=== PATIENT | female | born 1965 | race Caucasian/White ===

== ENCOUNTER → 2016-06-18 | Outpatient (CLI) | payer OTHER ==
[2015-07-10 10:15] VITALS: BP 99/44
[~2016-06-18] MED LIST: CEPH500T PO; CYCL10TA2 PO; DOCU50CA9 PO; GABA600T2 PO; HYDR-2762 PO; HYDR-965 PO; IBUP-1060 PO; MORP15TA PO; MORP15TA3 PO; OXYC1TAB8 PO
--- NOTE | 2016-06-18 09:38 | RAD ---
Two-view lumbar spine series Indications: Lumbar fusion in July 2015. Worsening pain in back and down legs for one month. Comparison: September 24, 2015. Findings: Again seen are bilateral transpedicular screws at L3 and L4 and L5 connected by 2 vertical stabilizer bars. Again seen is interbody disc space fusion device at L3-4. Increased lucency is seen around the L5 transpedicular screws especially the left screw in the AP projection. Partial laminectomy is seen at L4. Alignment is stable. No compression fracture or discitis or osteolytic process is seen. Transverse processes are intact. There is moderate degenerative endplate spurring and mild disc space narrowing throughout the lumbar spine. This is unchanged. IMPRESSION: Lumbar fusion from L3 to L5. Stable alignment. No compression fracture or discitis is seen. Increased lucency around the transpedicular screws at L5. Loosening and/or infection is possible.
== END | disposition home or self-care (01) ==
LOC: RAD 08:28
PROVIDERS: ATTEND Neurological Surgery
DX: M43.26 Fusion of spine, lumbar region (principal)
CPT/HCPCS: 72100

== ENCOUNTER → 2017-10-23 | Outpatient (CLI) | payer OTHER ==
[2015-07-10 10:15] VITALS: BP 99/44
[~2017-10-23] MED LIST changes: +GADOBUTROL 10 MMOL/10 ML VIAL IV ONE; +MELO7.5T29 PO
--- NOTE | 2017-10-23 13:46 | KCIC ---
MRI of the cervical spine without contrast 10/23/2017 CLINICAL HISTORY: Neck pain which radiates down the right arm intermittently. TECHNIQUE: Unenhanced T1-weighted, T2-weighted and inversion recovery sagittal and gradient echo and T2-weighted axial images of the cervical spine were obtained. FINDINGS: Minimal lateral curvature of the cervical spine is seen convex to the right. There is slight reversal of the normal cervical lordosis. Degenerative signal changes are seen involving all of the disks of the cervical spine. Degenerative signal changes are seen within the marrow surrounding these discs. Loss of height of the C5-6 disc is noted. Mild retrolisthesis of C5 in relation to C6 is seen. No definite area of abnormal signal intensity is seen involving the cervical spinal cord. At the C2-3 disc space there is a mild generalized disc bulge. Degenerative changes are seen involving the uncovertebral and facet joints, left greater than right. These findings do not result in significant central spinal canal stenosis. Mild to moderate left neural foraminal stenosis is seen. The right neural foramen is patent. At the C3-4 disc space there is a mild to moderate generalized disc bulge. Degenerative changes are seen involving the uncovertebral and facet joints bilaterally. These findings efface the anterior and posterior CSF resulting in mild central spinal canal stenosis with minimal cord impingement. Mild to moderate bilateral neural foraminal stenosis is seen. At the C4-5 disc space there is a mild to moderate generalized disc bulge. This is eccentric to the right. Degenerative changes are seen involving the uncovertebral and facet joints, right greater than left. These findings result in mild right-sided central spinal canal stenosis without evidence of cord impingement. Mild to moderate right neural foraminal stenosis is seen. The left neural foramen is patent. At the C5-6 disc space there is a moderate generalized disc bulge. Degenerative changes are seen involving the uncovertebral and facet joints bilaterally. These findings efface the anterior and posterior CSF resulting in mild central spinal canal stenosis with minimal cord impingement. Mild to moderate right greater than left neural foraminal stenosis is seen. At the C6-7 disc space there is a mild generalized disc bulge. Degenerative changes are seen involving the uncovertebral and facet joints bilaterally. These findings do not result in significant central spinal canal or neural foraminal stenosis. At the C7-T1 disc space there is a minimal generalized disc bulge. Degenerative changes are seen involving the facet joints bilaterally. These findings do not result in significant central spinal canal or neural foraminal stenosis. IMPRESSION: Degenerative changes are seen throughout the cervical spine. These findings result in mild central spinal canal stenosis with minimal cord impingement at C3-4 and C5-C6. Mild to moderate left neural foraminal stenosis is seen at C2-3. Mild to moderate bilateral neural foraminal stenosis is seen at C3-4. Mild to moderate right neural foraminal stenosis is seen at C4-5. Mild to moderate right greater than left neural foraminal stenosis is seen at C5-6. Electronically signed by: Fabio Guerra MD (10/23/2017 1:42 PM) [facility]
--- NOTE | 2017-10-23 16:45 | KCIC ---
MRI of the lumbar spine without and with contrast 10/23/2017 CLINICAL HISTORY: Low back pain which radiates down the right leg. History of previous lumbar spine surgery. TECHNIQUE: Unenhanced T1-weighted and T2-weighted sagittal and axial and inversion recovery sagittal images of the lumbar spine were obtained. After the intravenous administration of 10 cc of Gadavist, enhanced T1-weighted sagittal and axial images of the lumbar spine were obtained. FINDINGS: Comparison study is dated 07/07/2016. Mild lateral curvature of the lumbar spine is seen convex to the right. The patient is post right hemilaminotomy and fusion using pedicle screws, stabilizing rods and bone graft material at L3-4 and L4-5. Degenerative signal changes are seen involving all of the disks of the lumbar spine. Degenerative signal changes are seen within the marrow surrounding these discs. Loss of height of the L4-5 and L5-S1 discs is noted. The conus medullaris is normal morphology, position, and signal characteristics. At the L1-2 disc space there is a minimal generalized disc bulge. Degenerative changes are seen involving the facet joints bilaterally. There is mild ligamentum flavum hypertrophy bilaterally. These findings do not result in significant central spinal canal or neural foraminal stenosis. At the L2-3 disc spaces there are mild generalized disc bulge. Degenerative changes are seen involving the facet joints bilaterally. There are small facet joint effusions bilaterally. There is prominence of the posterior epidural fat. There is mild to moderate ligamentum flavum hypertrophy. These findings when combined result in mild central spinal canal stenosis. No neural foraminal stenosis is seen. At the L3-4 and L4-5 disc spaces, postsurgical changes are seen as outlined above. There are mild generalized disc bulges. Degenerative changes are seen involving the facet joints bilaterally. These findings do not result in significant central spinal canal or neural foraminal stenosis. At the L5-S1 disc space there is a mild generalized disc bulge. Degenerative changes are seen involving the facet joints bilaterally. These findings when combined do not result in significant central spinal canal or neural foraminal stenosis. The degenerative changes at L2-3 have progressed slightly since the previous study. IMPRESSION: 1. Post right hemilaminotomy and fusion at L3-4 and L4-5. 2. The changes of degenerative disc disease are seen throughout the lumbar spine. These findings result in mild central spinal canal stenosis at L2-3. No neural foraminal stenosis is seen. Electronically signed by: Fabio Guerra MD (10/23/2017 4:41 PM) [facility]
== END | disposition home or self-care (01) ==
LOC: KCIC MRI 09:11
PROVIDERS: ATTEND Neurological Surgery
DX: M47.892 Other spondylosis, cervical region (principal); M48.02 Spinal stenosis, cervical region; M51.16 Intervertebral disc disorders with radiculopathy, lumbar region; M48.061 Spinal stenosis, lumbar region without neurogenic claudication; M43.26 Fusion of spine, lumbar region; Z87.891 Personal history of nicotine dependence
CPT/HCPCS: 72141; 72158; A9585

== ENCOUNTER 2017-10-27 13:20 | Emergency (ER) | payer OTHER ==
[~2017-10-27] VITALS: Ht 175.3 cm; Wt 113.4 kg
[~2017-10-27 13:20] MED LIST changes: -GADOBUTROL 10 MMOL/10 ML VIAL IV ONE
[2017-10-27 13:35] VITALS: BP 160/106
--- NOTE | 2017-10-27 14:55 | RAD ---
EXAM: Left hip, 2 views. HISTORY: Pain. COMPARISON: None. FINDINGS: Frontal and frog-leg views of the left hip are obtained. There is no fracture, dislocation or subluxation. IMPRESSION: No acute osseous finding. Electronically signed by: Oneyda May MD (10/27/2017 2:53 PM) [place] [id number]
== END 2017-10-27 15:20 | disposition home or self-care (01) ==
LOC: ER 13:20
DX: M25.552 Pain in left hip (principal); M79.605 Pain in left leg; F17.200 Nicotine dependence, unspecified, uncomplicated
CPT/HCPCS: 73502; 99284

== ENCOUNTER → 2019-01-25 | Outpatient (CLI) | payer OTHER ==
[~2019-01-25] MED LIST changes: +DULO30CA2 PO; +DULO60CA6 PO; -GABA600T2 PO; +GABA600T7 PO; +GABA800T5 PO; -HYDR-2762 PO; +HYDR-2765 PO; +HYDR-3165 PO; -HYDR-965 PO; +IBUP-1027 PO; +MORP-15 PO; -MORP15TA3 PO
--- NOTE | 2019-01-25 13:21 | PAIN ---
DATE OF SERVICE: 01/25/2019 INITIAL CONSULTATION FOR PAIN CLINIC CHIEF COMPLAINT: Low back and bilateral lower extremity pain. HISTORY OF PRESENT ILLNESS: This is a 53-year-old female who presents with history of pain in the low back and bilateral lower extremities for many years. The patient reports the pain began prior to 2013. She has had two lumbar surgeries with decompression as well as instrumentation and fusion in 2015 and prior to that in 2014 with initially good results with the pain returned in the low back and bilateral lower extremities, radiating to posterior gluteus, posterior thighs, posterior calves, lateral thighs, anterior calves, right groin into the medial lower legs bilaterally, somewhat worse on the right than the left, but present bilaterally. The patient reports she has recently a visit with her neurosurgeon, Dr. Yohan Pedraza and was not recommending any further surgery at this time and is recommending nonsurgical modalities. The patient reports the pain is stabbing, throbbing, shooting, numbness and tingling in the low back and legs as well as burning and cramping and aching in the back, intermittent in intensity, worse with walking, standing, changing positions, worse with sitting for prolonged periods, greater than 20-30 minutes. The patient reports it awakens her from sleep about 4-6 times a night, does not affect her bowel or bladder control, but does affect her ability to walk significantly, especially with the right leg, fatigues very easily. No overt motor loss, but significant fatigability with the right leg, not using any assistive devices to ambulate. The patient has had epidural injections, trigger point injections, physical therapy, counseling, chiropractic treatment and exercises, still doing exercises on her own as well, has been seen at outside Pain Clinic as well for these modalities without significant long lasting results. The patient is taking cyclobenzaprine, gabapentin, duloxetine, all of which are not decreasing the pain. She tried xzyr-bxs-epghxuz anti-inflammatories as well ibuprofen, Advil and naproxen without significant decrease in pain also. The patient rates her disability rating from 0-10, 10 being the worst and 9 with family home responsibilities, recreation, social activity, sexual behavior and life support activities, 10 with occupational activities and 7 with self-care activities. The patient reports no overt loss of motor function, but significant fatigability of the legs, especially on the right side with any walking or even sitting. We did an MRI scan showing multilevel degenerative disk disease with concentric disk bulge, small superimposed central or right paracentral disk extrusion at L2-L3. L3-L4 shows rcei-ad-[id number] left neural foraminal narrowing. L4-L5 shows mild right neural foraminal narrowing. L5-S1 shows central disk protrusion with xfvonuq-og-eleiklwv neural foraminal narrowing as well. PAST MEDICAL HISTORY: Significant for cigarette smoking. PREVIOUS SURGERY: Include cholecystectomy, appendectomy, lumbar surgery in 2015 and instrumentation and fusion in 2016. CURRENT MEDICATIONS: Include cyclobenzaprine, gabapentin, duloxetine, and ibuprofen. ALLERGIES: The patient has no known drug allergies, but allergic to certain surgical stitches she reports. FAMILY HISTORY: Significant for no major medical problems or conditions she is aware of. SOCIAL HISTORY: The patient does not drink alcohol. Smokes about half a pack of cigarettes a day and has for 35 years, continues to smoke. She is not using illegal, illicit or recreational drugs. She is , lives with her spouse, lives locally in [place], [place]. 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 REVIEW OF SYSTEMS: The patient's review of systems is positive for those items mentioned in history of present illness. All systems reviewed and otherwise negative. It is complete, full and well documented on the patient's chart. PHYSICAL EXAMINATION: VITAL SIGNS: The patient's blood pressure is 119/95, pulse 98, respirations 20, temperature 98.1 degrees Fahrenheit, height is 5 feet 9 inches, weight is 285 pounds. GENERAL: The patient is awake, alert, oriented, appropriate, very pleasant demeanor. HEENT: Shows normocephalic, atraumatic. Extraocular movements are intact and symmetrical. Oral cavity: Mucous membranes moist and pink. Dentition is intact. NECK: Shows anterior throat supple without palpable lymphadenopathy noted. Swallow reflex symmetrical. CHEST: Shows normal on inspection. Breath sounds are clear bilaterally. HEART: Shows S1, S2 clear. No murmurs auscultated. ABDOMEN: Soft, nontender, nondistended. No palpable organomegaly is noted. No rebound or guarding demonstrated. BACK: Shows spine grossly in the midline, normal appearing thoracic kyphosis and significant flattening of lumbar lordotic curvature with well-healed surgical scarring noted. Lumbar paraspinous muscle shows symmetrical on inspection, on palpation shows some moderate tenderness diffusely bilaterally, but only diffusely without radiation throughout the upper, middle and lower distribution of paraspinous muscles. No tenderness over the spinous processes, sacrum or sacroiliac regions. The patient has good rotational motion of lumbar spine with somewhat limited extension, but not secondary to pain, forward flexion at about 40 degrees without difficulty. EXTREMITIES: Lower extremities show deep tendon reflexes at 1+ in the patellar and tendo calcaneus tendons and are symmetrical. Motor exam shows dorsiflexion and extension at 5/5 as is quadriceps and hamstring flexion symmetrical. Peripheral pulses are 1+ posterior tibia. No peripheral edema is noted. Straight leg raise noted to be negative for radicular symptoms reproduction bilaterally. Gaenslen's and Nicholas's maneuvers are negative bilaterally as well. The patient is able to stand, stand on her toes without significant difficulty, walks slightly favoring right lower extremity, not using any assistive devices in the office today to ambulate. SKIN: Shows warm and dry, good turgor. No edema. No sores, rashes or bruising throughout. IMPRESSION: 1. This is a 53-year-old female with a long history of low back pain, bilateral lower extremity pain, persistent radicular pain and low back pain and L4-L5 and L5-S1 dermatomal distribution. 2. Status post lumbar decompressive surgery as well as instrumentation and fusion in 2016 with persistent pain, status post lumbar epidural steroid injections, trigger point injections counseling, physical therapy and medication modalities. 3. Cigarette smoking. 4. Obesity. PLAN: Options were discussed with the patient including conservative medical managements, physical therapies continued interventional techniques. We discussed a spinal cord stimulator as this may be the best option for the patient. She has been through all the other modalities at this time without significant reduction in pain. The patient was given some information to research on her own by her request and she is already seeing a psychologist as this process was started at her outside pain facility about six months ago. We will get those records from a psychologist and the patient is preauthorized for spinal cord stimulator trial placement. The patient will return once this is obtained. ERIK ARAMBULA MD DR: FOREIGN/larry JOB#: [id number] / [id number]
== END | disposition home or self-care (01) ==
LOC: PNCL 09:00
PROVIDERS: ATTEND Anesthesiology
DX: M54.5 Low back pain (principal); M79.604 Pain in right leg; M79.605 Pain in left leg; E66.9 Obesity, unspecified; F17.210 Nicotine dependence, cigarettes, uncomplicated; Z98.1 Arthrodesis status; Z79.899 Other long term (current) drug therapy
CPT/HCPCS: G0463

== ENCOUNTER → 2019-02-09 | Outpatient (CLI) | payer OTHER ==
[~2019-02-09] MED LIST changes: +LIDOCAINE 1% PF 2 ML VIAL. ONE
--- NOTE | 2019-02-09 15:59 | PAIN ---
DATE OF SERVICE: 02/09/2019 PROGRESS NOTE FOR PAIN CLINIC DIAGNOSES: Lumbar radiculopathy with lumbar degenerative disk disease and lumbar spinal stenosis, lumbar post-laminectomy syndrome. HISTORY OF PRESENT ILLNESS: The patient is a 54-year-old female who returns for followup status post initial evaluation and preauthorization for spinal cord stimulator temporary leads placement. The patient would like to proceed with this, has had a psychological evaluation and in the good category for spinal interventions. The patient reports the pain still in the low back, bilateral lower extremities, posterior gluteus, posterior thighs, posterior calves, anterior thighs, anterior calves and into medial ankles and feet, worse is a 10 on a scale of 10 at its worst over the past week, 8 on average, 6 at its least and is an 8 today. The patient reports it is aching, sharp, shooting, burning, stabbing, becoming more constant and severe, unbearable with walking, standing, weightbearing, better with sitting, but awakens her from sleep about every 4-5 hours, especially on the right side. The patient reports no new motor or sensory deficits, no new bowel or bladder incontinence or other complaints. PHYSICAL EXAMINATION: VITAL SIGNS: The patient's blood pressure 131/90, pulse 99, respirations 18, temperature 97.9 degrees Fahrenheit, height is 5 feet 9 inches, weight is 292 pounds. GENERAL: The patient is awake, alert, oriented, appropriate, very pleasant demeanor. HEENT: Shows normocephalic, atraumatic. Extraocular movements are intact and symmetrical. Oral cavity: Mucous membranes moist and pink. Dentition is intact. NECK: Shows anterior throat supple without palpable lymphadenopathy noted. Swallow reflex symmetrical. CHEST: Shows normal on inspection. Breath sounds are clear to auscultation bilaterally. HEART: Shows S1, S2 clear. No murmurs auscultated. ABDOMEN: Soft, nontender, nondistended. No palpable organomegaly is noted. No rebound or guarding demonstrated. BACK: The patient's back shows spine grossly in the midline, normal-appearing cervical lordotic curvature, thoracic kyphotic curvature, some minor flattening of lumbar lordotic curvature. Well-healed surgical scars once again noted in the lumbar distribution. The patient has good rotational motion of the lumbar spine; however, both laterally as well as extension and flexion without significant difficulty or tenderness. EXTREMITIES: The patient's lower extremities show deep tendon reflexes 1+ in the patellar and tendo calcaneus tendons. Motor exam is strong with dorsiflexion, extension, quadriceps and hamstring flexion rated approximately 4 on a scale of 5, but symmetrical bilaterally without edema. Options were discussed with the patient. The patient's old chart was reviewed as her current medication regimen updated. Current review of systems updated today as well. We will proceed with a spinal cord stimulator temporary leads placement today with fluoroscopic guidance. Risks were again discussed including, but not limited to bleeding, infection, possibility of epidural hematoma, subsequent neurologic compromise, dural puncture, headaches, spinal cord and/or nerve damage, potential poor or premature removal of stimulator wires or dislodging with poor stimulation as well as poor results regarding pain control. The patient understands and wished to proceed. The patient will return to the clinic in approximately 1 week for followup. She was counseled as to return appointment, activity level and side effects to be aware of. DIAGNOSES: Lumbar radiculopathy with lumbar degenerative disk disease, lumbar spinal stenosis and post-lumbar laminectomy syndrome. PROCEDURE: Spinal cord stimulator temporary leads placement x 2. Under sterile prep and drape using local anesthetic and C-arm fluoroscopic guidance under sterile prep and drape patient in prone, the patient's spine was identified and the T8 vertebral level marked with external skin marker. Using 1% lidocaine for local anesthetic at the entry site of the level of the L1-L2 vertebral interspace, a 14-gauge Zootcardtead needle with stylet was introduced using preservative-free normal saline loss of resistance technique with negative aspiration x 2 to be in the midline and posteriorly in the epidural space confirmed with AP and lateral views of C-arm fluoroscopic guidance. Wires were placed without difficulty, without resistance, without paresthesia to lie at the superior endplate of T8 vertebral body and the second one superior endplate of the T9 vertebral body again in the midline and posterior, verified with lateral fluoroscopic views. Stylets and needles were then removed under intermittent fluoroscopic guidance to assure no movement of the leads, which was assured. The leads were secured with anchoring devices and skin eddie, 2 on each lead as the patient reports significant sensitivity and allergic responses to suture. Mastisol, Steri-Strips were placed on top of the skin leads as well and then reinforced with gauze and Tegaderms and tape under sterile prep as well. CONDITION AT DISCHARGE: Stable. The patient tolerated the procedure well, had no immediate complications. The patient was discharged under her own power with her duqiribp-cq-xto present to drive. ERIK ARAMBULA MD DR: FOREIGN/larry JOB#: [id number] / [id number]
== END ==
LOC: PNCL 13:00
PROVIDERS: ATTEND Anesthesiology
DX: M51.16 Intervertebral disc disorders with radiculopathy, lumbar region (principal); M96.1 Postlaminectomy syndrome, not elsewhere classified; M48.061 Spinal stenosis, lumbar region without neurogenic claudication
CPT/HCPCS: 63650; C1897

== ENCOUNTER → 2019-02-16 | Outpatient (CLI) | payer OTHER ==
[~2019-02-16] MED LIST changes: -LIDOCAINE 1% PF 2 ML VIAL. ONE
--- NOTE | 2019-02-16 23:36 | PAIN ---
DATE OF SERVICE: 02/16/2019 PROGRESS NOTE FOR PAIN CLINIC DIAGNOSES: Lumbar radiculopathy with lumbar degenerative disk disease, lumbar spinal stenosis and post-lumbar laminectomy syndrome. HISTORY OF PRESENT ILLNESS: The patient is a 54-year-old female who returns for followup status post spinal cord stimulator leads placement, temporary leads x 2. One week ago, the patient returned, reports significant decrease in pain about 90% improvement overall with the temporary leads over the past week. The patient reports her leg pain is much improved, low back pain significantly improved as well. Right leg was hurting more than the left, but both legs are doing much better again by about 90% improvement. The patient reports her pain has been 8 on a scale of 10 at its worst over the past week and it was due to a procedural soreness from the placement of the leads, average about a 3 and least is a 1, is a 1 today. The patient reports it is tingling, burning, aching, sharp, shooting at times, but overall without significant improvement. The patient reports no new motor or sensory deficits, no new changes. She has increased in distance walking, doing work activities, household activities, standing to cook, sleeping with much better ease and comfort, does not awaken her from sleep with the spinal cord stimulator in place as it did previously. The patient reports no new changes or other deficits. PHYSICAL EXAMINATION: VITAL SIGNS: The patient's blood pressure 124/52, pulse 47, respirations 16, temperature 98.3 degrees Fahrenheit. GENERAL: The patient is awake, alert, oriented, appropriate, very pleasant demeanor. HEENT: Shows normocephalic, atraumatic. Extraocular movements are intact and symmetrical. Oral cavity shows mucous membranes moist and pink. Dentition is intact. NECK: Shows anterior throat supple without palpable lymphadenopathy noted. Swallow reflex symmetrical. CHEST: Shows normal on inspection. Breath sounds are clear bilaterally. HEART: Shows S1, S2 clear. No murmurs auscultated. ABDOMEN: Soft, nontender, nondistended. No palpable organomegaly is noted. No rebound or guarding demonstrated. BACK: Shows spine grossly in the midline. The patient's leads were inspected, cleaned and dried once the tape and bandages were taken down. [place] were removed and then leads were removed with the tips intact x 2. Site clean and dry, no erythema, no drainage, no significant tenderness. No abnormalities. PLAN: Options were discussed with the patient. The patient's old chart was reviewed as her current medication regimen updated. Current review of systems updated today as well. We will make arrangements for permanent stimulator implantation. The patient will continue with stretching and strength exercises in the meantime and we will await permanent stimulator implantation. ERIK ARAMBULA MD DR: FOREIGN/larry JOB#: [id number] / [id number]
== END ==
LOC: PNCL 12:28
PROVIDERS: ATTEND Anesthesiology
DX: M51.16 Intervertebral disc disorders with radiculopathy, lumbar region (principal); M48.061 Spinal stenosis, lumbar region without neurogenic claudication; F17.200 Nicotine dependence, unspecified, uncomplicated; Z98.1 Arthrodesis status
CPT/HCPCS: G0463

== ENCOUNTER 2019-10-04 12:12 | Emergency (ER) | payer OTHER ==
[~2019-10-04] VITALS: Ht 172.7 cm; Wt 113.6 kg
[2019-10-04] MEDS ORDERED: KETOROLAC 30 MG/ML VIAL. IM ONE (15:30)
[2019-10-04] MEDS ORDERED: oxyCODONE/APAP 7.5/325 1 TAB TABLET PO ONE (15:30)
[2019-10-04] MEDS ORDERED: diazePAM 5 MG TABLET PO ONE (15:30)
--- NOTE | 2019-10-04 16:35 | PHYS DOC ---
Past Medical History Past Medical History: High Cholesterol Past Surgical History: Other Additional Past Surgical Histo: back surgery Smoking Status: Current Every Day Smoker Alcohol Use: Occasionally Drug Use: None General Adult EDM: Chief Complaint: LOWER BACK PAIN OR INJURY HPI: HPI: Patient is a 54 year old female with 2 days history of lumbar stabbing, burning pain radiating to right hip and right leg that began while rolling over in bed. No bowel or bladder incontinence. No weakness or numbess. Patient with a history of back problems and prior surgery but no recent injections or surgeries. no fever. pain is worse w/ ROM, and moderate now and severe at it's worst. pt recently finished steroids for tendon problems in left wrist and has taken oxycodone at home w/ flexeril w/o much relief Review of Systems: Review of Systems: Constitutional: Denies fever or chills Eyes: Denies change in visual acuity HENT: Denies sore throat Respiratory: Denies cough or shortness of breath Cardiovascular: Denies chest pain or edema GI: Denies abdominal pain, nausea, vomiting, or diarrhea : Denies dysuria Musculoskeletal: Complains of back pain Integument: Denies rash Neurologic: Denies headache or focal weakness , no sensory deficits Psychiatric: Denies depression or anxiety Heart Score: Risk Factors: Risk Factors: DM, Current or recent (<one month) smoker, HTN, HLP, family history of CAD, obesity. Risk Scores: Score 0 - 3: 2.5% MACE over next 6 weeks - Discharge Home Score 4 - 6: 20.3% MACE over next 6 weeks - Admit for Clinical Observation Score 7 - 10: 72.7% MACE over next 6 weeks - Early Invasive Strategies Current Medications: Current Medications Medications (Trade) Dose Ordered Sig/[facility] Start Time Stop Time Status Last Admin Dose Admin Diazepam (Valium) 5 mg 1X ONCE 10/04/19 15:30 10/04/19 15:33 DC 10/04/19 15:55 5 MG Ketorolac Tromethamine (Toradol 30mg Vial) 60 mg 1X ONCE 10/04/19 15:30 10/04/19 15:33 DC 10/04/19 15:56 60 MG Oxycodone/ Acetaminophen (Percocet 7.5/ 325) 1 tab 1X ONCE 10/04/19 15:30 10/04/19 15:33 DC 10/04/19 15:56 1 TAB Allergies: Allergies: Allergies Uncoded Allergies Type Severity Reaction Last Updated Verified SUTURE Allergy Intermediate 02/21/15 Physical Exam: PE: Constitutional: Well developed, well nourished, no acute distress, non-toxic appearance. HENT: No trismus, external ears normal Eyes: Conjunctiva clear, EOMI Neck: Normal range of motion, no tenderness, supple, no stridor. Cardiovascular: Regular rate/rhythm, peripheral pulse intact, MICA MINER intact Lungs & Thorax: No respiratory distress Abdomen: No distension, nontender no guarding rebound no pulsatile masses Skin: Diffuse: Intact, no rash Back: Limited range of motion due to pain. Tenderness to palpation right lumbar area Extremities: Normal inspection, no edema Neurologic: Alert and oriented X 3, normal motor function, , no focal deficits noted. Dorsiflexion of the great toes intact bilateral lower extremities. No saddle anesthesia. Psychologic: Affect normal, judgement normal, mood normal. Current Patient Data: Vital Signs: Vital Signs Date Time Temp Pulse Resp B/P (MAP) Pulse Ox O2 Delivery O2 Flow Rate FiO2 10/04/19 15:56 24 97 Room Air 10/04/19 15:00 97.6 113 179/101 (127) 97.6 EKG: EKG: [] Radiology/Procedures: Radiology/Procedures: [] Course & Med Decision Making: Course & Med Decision Making Pertinent Labs and Imaging studies reviewed. (See chart for details) [] 54-year-old female with chronic back pain presents with exacerbation of her back pain. No evidence of cauda equina on exam. Patient is clinically stable. Patient was medicated for pain. No concern for epidural abscess based on history and exam. Dragon Disclaimer: Paras Disclaimer: This electronic medical record was generated, in whole or in part, using a voice recognition dictation system. Departure Departure Impression: Primary Impression: Lumbago Additional Impression: Lumbar spinal stenosis Disposition: 01 HOME, SELF-CARE Condition: STABLE Referrals: PAOLA SMYTH [facility] MACHINE OPERATOR (PCP) 2-3 DAYS Patient Instructions: Back Pain, Adult Additional Instructions: EMERGENCY DEPARTMENT GENERAL DISCHARGE INSTRUCTIONS THANK YOU for coming to [facility] Emergency Department (ED) today and trusting us with your care. We trust that you had a positive experience in our Emergency Department. If you wish to speak to the department Management you can contact the emergency department physician at . YOUR FOLLOW UP INSTRUCTIONS ARE FOLLOWS: Do you have a private doctor? If you do not have a private doctor, please ask for a resource list of physicians or clinics that may be able to assist you with follow up care. The Emergency Physician has interpreted your x-rays. The X-ray specialist will also review them. If there is a change in the findings you will be notified in 48 hours when at all possible. A lab test or lab culture may have been done, your results will be reviewed and you will be notified if you need a change in treatment. ADDITIONAL INSTRUCTIONS AND INFORMATION Your care today has been supervised by a physician who is specially trained in emergency care. Many problems require more than one evaluation for a complete diagnosis and treatment. We recommend that you schedule your follow up appointment as recommended to ensure complete treatment of your illness or injury. If you are unable to obtain follow up care and continue to have a problem, or if your condition worsens we recommend that you return to the ED. We are not able to safely determine your condition over the phone nor are we able to give sound medical advice over the phone. For these safety reasons, if you call for medical advice we will ask you to come to the ED for further evaluation If you have any questions regarding these discharge instructions please call the ED at . SAFETY INFORMATION In the interest of safety, wellness, and injury prevention; we encourage you to wear your seatbelt, if you smoke; quit smoking, and we encourage your family to use protective helmet for bicycling and other sporting events that present an increased risk for head injury. IF YOUR SYMPTOMS WORSEN OR NEW SYMPTOMS DEVELOP, OR YOU HAVE CONCERNS ABOUT YOUR CONDITION; OR IF YOUR CONDITION WORSENS WHILE YOU ARE WAITING FOR YOUR FOLLOW UP APPOINTMENT; EITHER CONTACT YOUR PRIMARY CARE DOCTOR, THE PHYSICIAN WHOSE NAME AND NUMBER YOU WERE GIVEN, OR RETURN TO THE ED IMMEDIATELY. Scripts Methylprednisolone (MEDROL) 4 Mg Tab.ds.pk 1 PKG PO UD, #1 PKG Prov: MAYTE BERRIOS MD 10/04/19 Diazepam (VALIUM) 5 Mg Tablet 5 MG PO TID, #15 TAB Prov: MAYTE BERRIOS MD 10/04/19 Justicifation of Admission Dx: Justifications for Admission: Justification of Admission Dx: N/A MAYTE BERRIOS MD Oct 04, 2019 16:35
[2019-10-04] MEDS ORDERED: METH4TAB2 PO (16:39)
[2019-10-04] MEDS ORDERED: DIAZ5TAB PO (16:39)
[2019-10-04 17:00] VITALS: BP 161/93
== END 2019-10-04 17:00 | disposition home or self-care (01) ==
LOC: ER 12:12
DX: M48.061 Spinal stenosis, lumbar region without neurogenic claudication (principal); M54.5 Low back pain; E78.00 Pure hypercholesterolemia, unspecified; F17.200 Nicotine dependence, unspecified, uncomplicated; Z98.890 Other specified postprocedural states; Z91.09 Other allergy status, other than to drugs and biological substances
CPT/HCPCS: 96372; 99283; J1885

== ENCOUNTER → 2019-11-16 | Outpatient (CLI) | payer OTHER ==
[~2019-11-16] MED LIST changes: +DIAZ5TAB PO; +METH4TAB2 PO
--- NOTE | 2019-11-16 13:26 | KCIC ---
L-spine 3 views INDICATION: Lumbar radiculopathy TECHNIQUE: Standing lateral, coned-down lateral and AP views of the lumbar spine were COMPARISON: L-spine MRI of 10/23/2017 FINDINGS: 5 lumbar type vertebrae identified. There is mild rightward listhesis of L3 relative to L2 and of L4 relative to L5. Also noted is rightward scoliotic curvature of the lumbar spine, apex at L3-L4. Vertebral body heights are preserved. Bones are mildly demineralized. No acute fracture or aggressive osseous lesions are seen. There are surgical changes from previous danitza and pedicle screw construct posterior fusion spanning L3-L5 with interbody prosthesis at L3-L4, similar to prior. Spinal stimulator redemonstrated, with electrodes terminating at the approximate T10-T11 level in the lower thoracic spine. IMPRESSION: Osteopenia and rightward scoliotic curvature of the lumbar spine without fracture or aggressive osseous lesions, status post posterior danitza and pedicle screw construct fusion at L3-L5 and interbody graft at L3-L4. Electronically signed by: Shiva Mireles MD (11/16/2019 1:23 PM) [id number]
== END | disposition home or self-care (01) ==
LOC: KCIC 09:10
PROVIDERS: ATTEND Neurological Surgery
DX: M43.16 Spondylolisthesis, lumbar region (principal); M54.16 Radiculopathy, lumbar region; M85.88 Other specified disorders of bone density and structure, other site; M41.86 Other forms of scoliosis, lumbar region; M81.0 Age-related osteoporosis without current pathological fracture
CPT/HCPCS: 72100

== ENCOUNTER → 2019-12-19 | Outpatient (CLI) | payer OTHER ==
[~2019-12-19] MED LIST changes: +IOHEXOL 180 MG/ML 10 ML VIAL. IT ONE; +LIDOCAINE 1% Multi-Dose 20 ML VIAL. ID ONE
--- NOTE | 2019-12-19 14:50 | KCIC ---
CT lumbar spine exam History:Severe low back pain for one year, spondylolisthesis Technique: CT imaging was performed of the lumbar spine after injection for lumbar myelogram. Multiplanar reconstruction images are submitted. Exposure: One or more of the following individualized dose reduction techniques were utilized for this examination: 1. Automated exposure control 2. Adjustment of the mA and/or kV according to patient size 3. Use of iterative reconstruction technique. Comparison: November 12, 2018 MRI lumbar spine exam Findings: There is again posterolateral fusion hardware with bilateral pedicle screws at L3, L4, L5 attached to intact vertical rods. There is L3-4 interbody graft. There is again grade 1 anterior spondylolisthesis at L4-5. There is again moderate to severe narrowing of the L4-5 intervertebral disc space, minimally at L2-3 and L5-S1. There is [id number] dextroscoliosis centered near L4. There is mild right lateral subluxation L4 relative to L5, minimal left lateral subluxation L2 relative to L3. There is negligible posterior subluxation of L2 relative L3. Lumbar vertebral body stature is maintained. Conus terminates near the mid to superior L1 level. There are thoracic spinal stimulator leads coursing into the posterior aspect of the spinal canal at the T12-L1 level, superior extent not included on this exam. There is mild scattered plaque of the abdominal aorta. T12-L1: Spinal canal and neural foramina are adequate. There is facet degenerative change bilaterally. L1-L2: There is [id number] facet degenerative change. Neural foramina and spinal canal are adequate. L2-L3: There is moderate to severe facet degenerative change and mild buckling of the ligamentum flavum. There is posterior bulge. There is prominence of posterior epidural fat centrally, also in the lateral recesses bilaterally. There is mild to moderate attenuation of the thecal sac. There is moderate to severe left and mild right neural foramina compromise, narrowing on the left primarily from posteriorly by facet. L3-L4: There has been posterior decompression, spinal canal overall adequate. There is mild narrowing of the left neural foramen from osteophytes, right neural foramen overall adequate. L4-L5: There has been posterior decompression. Spinal canal is adequate. There is mild overall narrowing of the right neural foramen in part from posteriorly by facet hypertrophic change, left neural foramen adequate. L5-S1: There is moderate facet hypertrophic change greater on the right. There is prominence of epidural fat lateral recesses bilaterally, some preserved central subarachnoid space. There is no displacement of the descending S1 nerve roots, spinal canal overall adequate. There is mild narrowing of the inferior distal right neural foramen by disc osteophyte complex, left neural foramen adequate. Impression: 1. There is intact posterolateral fusion hardware L3-L5, also L3-4 interbody graft. 2. There is mild to moderate attenuation of the thecal sac at L2-3 as described, posterior central attenuation of the thecal sac from epidural lipomatosis although also bulge at this level. 3. There is lumbar neural foramina compromise, moderate to severe narrowing on the left at L2-3 and other mild narrowing as stated. 4. There is inferior lumbar dextroscoliosis. There is multilevel abnormal alignment as stated. There is multilevel lumbar facet degenerative change. 5. There is degenerative disc disease greatest at L4-5, to a lesser degree at L2-3 and L5-S1. 6. There are thoracic spinal stimulator leads. Electronically signed by: Sohail Garcia MD (12/19/2019 2:47 PM) [id number]
--- NOTE | 2019-12-19 14:50 | KCIC ---
Lumbar Myelogram History: Spondylolisthesis, severe low back pain for one year Technique: Patient was informed of the risks of the procedure to include pain, infection, bleeding, seizures, nerve root injury, and allergic reaction to the contrast. All questions were answered. Patient signed a written consent form for a lumbar myelogram. The patient was placed in a prone oblique position on the fluoroscopy table. External site of the lower back was prepped and draped in the usual sterile fashion. Betadine was utilized for cleansing solution. 1% lidocaine was utilized for local anesthesia at the anticipated site of puncture left L1-2 interlaminar space. A 19-gauge guiding needle was advanced into the soft tissues. Through the guiding needle, a 25 gauge Thompson needle was advanced although could not successfully advance into the thecal sac due to scar tissue in this region. Therefore 22-gauge Thompson needle was advanced at the same location until return of cerebral spinal fluid. Approximately 15 cc of Omnipaque 180 were then injected during fluoroscopic visualization. The needles were removed. Fluoroscopic spot images including standing images were acquired of the lumbar spine. The patient was then transferred to the CT department for CT examination of the lumbar spine. There were no immediate complications. Fluoroscopy time: 1 minute 43 seconds, 24 images Findings: There was no evidence of myelographic block. There is posterolateral fusion hardware at what is considered 3, L4, L5 with bilateral pedicle screws attached to vertical rods. There is L3-4 interbody graft. Hardware is intact. There are thoracic spinal stimulator leads coursing into the thoracic spine. There is anterior extradural defect at L2-3, also degree of posterior epidural defect at this level with resultant overall moderate attenuation of the thecal sac. There is very mild grade 1 anterior spondylolisthesis L4-5 slightly accentuated with flexion. There is negligible posterior subluxation L2 relative to L3 with extension. Thoracic spinal stimulator lead tips terminate near the superior aspect of T10. There is [id number] inferior lumbar dextroscoliosis. There is mild right lateral subluxation L4 relative to L5. Impression: 1. There are anterior and to a lesser degree posterior extradural defects at the L2-3 level with resultant overall moderate attenuation of the thecal sac. 2. There is intact posterolateral fusion hardware L3-L5. There is L3-4 interbody graft. 3. There is mild abnormal alignment as stated. There is [id number] inferior lumbar dextroscoliosis. Electronically signed by: Sohail Garcia MD (12/19/2019 2:47 PM) [id number]
== END ==
LOC: KCIC 12:20
PROVIDERS: ATTEND Neurological Surgery
DX: M43.16 Spondylolisthesis, lumbar region (principal); M51.36 Other intervertebral disc degeneration, lumbar region; E78.00 Pure hypercholesterolemia, unspecified; F17.210 Nicotine dependence, cigarettes, uncomplicated; Z88.8 Allergy status to other drugs, medicaments and biological substances; Z79.899 Other long term (current) drug therapy
CPT/HCPCS: 62304; 72132; J3490; Q9965